=== PATIENT | female | born 1950 | race Caucasian/White ===

== ENCOUNTER 2022-01-23 19:46 | Inpatient (IN) | payer OTHER ==
[~2022-01-23] VITALS: Ht 127 cm; Wt 47.6 kg
[2022-01-23 20:05] VITALS: BP 111/47
[2022-01-23] MEDS ORDERED: PANTOPRAZOLE 40 MG INJ VIAL IVP ONE (20:50)
[2022-01-23 21:08] LABS: BASOPHILS % (AUTO) 0.6 % (0.0-2.0); EOSINOPHILS # (AUTO) 0.1 K/uL (0-0.4); EOSINOPHILS % (AUTO) 4.1 % (0.0-4.0); HEMATOCRIT 24.2 % (36-48); HEMOGLOBIN 7.1 g/dL (12.0-16.0); LYMPHOCYTES # (AUTO) 0.7 K/uL (2.5-16.5); LYMPHOCYTES % (AUTO) 20.8 % (20.5-51.1); MEAN CORPUSCULAR HEMOGLOBIN 29 pg (27-31); MEAN CORPUSCULAR HGB CONC 29 g/dL (33-37); MEAN CORPUSCULAR VOLUME 98.8 fL (80-94); MONOCYTES # (AUTO) 0.5 K/uL (0.8-1.0); MONOCYTES % (AUTO) 14.7 % (1.7-9.3); NEUTROPHILS # (AUTO) 2.1 K/uL (1.8-7.7); NEUTROPHILS % (AUTO) 59.8 % (42.2-75.2); PLATELET COUNT (AUTO) 271 K/uL (140-450); RED BLOOD CELL COUNT(AUTO) 2.45 MIL/uL (4.20-5.40); RED CELL DISTRIBUTION WIDTH 16.6 % (11.6-13.7); WHITE BLOOD COUNT (AUTO) 3.4 K/uL (4.8-10.8)
[2022-01-23 21:31] LABS: PROTHROMBIN TIME 10.6 secs (10.8-13.4)
[2022-01-23 21:39] LABS: ALBUMIN 2.1 g/dL (3.4-5.0); ANION GAP 11.6 (8-16); CARBON DIOXIDE 22.5 mmol/L (21-32); CREATININE 0.6 mg/dL (0.6-1.3); MAGNESIUM 1.9 mg/dL (1.8-2.4); PHOSPHORUS 2.7 mg/dL (2.5-4.9); POTASSIUM 4.1 mmol/L (3.5-5.1); TOTAL BILIRUBIN 0.4 mg/dL (0.0-1.0)
[2022-01-23] MEDS ORDERED: PANTOPRAZOLE 40 MG INJ VIAL ONE (22:09)
[2022-01-24] MEDS ORDERED: ACETAMINOPHEN 325 MG TAB PO PRN ×2 (00:20→13:00)
[2022-01-24] MEDS ORDERED: HYDROcodone/APAP 5/325 MG 1 TAB TAB PO PRN ×2 (00:20→13:00)
[2022-01-24] MEDS ORDERED: PANTOPRAZOLE 40 MG INJ VIAL ONE (01:05)
[2022-01-24] MEDS: MORPHINE SULFATE 2 MG/ML SYR IVP PRN ×2 (01:21→07:40)
[2022-01-24] MEDS: PANTOPRAZOLE 80 MG in NACL 0.9% 100 ML IVP SCH ×3 (01:23→19:30)
[2022-01-24 02:00] VITALS: BP 126/72
[2022-01-24 08:00] VITALS: BP 107/77
[2022-01-24 08:33] LABS: BASOPHILS % (AUTO) 1.1 % (0.0-2.0); EOSINOPHILS # (AUTO) 0.3 K/uL (0-0.4); EOSINOPHILS % (AUTO) 7.2 % (0.0-4.0); HEMATOCRIT 26.3 % (36-48); HEMOGLOBIN 8.2 g/dL (12.0-16.0); LYMPHOCYTES # (AUTO) 0.6 K/uL (2.5-16.5); LYMPHOCYTES % (AUTO) 18.4 % (20.5-51.1); MEAN CORPUSCULAR HEMOGLOBIN 29 pg (27-31); MEAN CORPUSCULAR HGB CONC 31 g/dL (33-37); MEAN CORPUSCULAR VOLUME 93.6 fL (80-94); MONOCYTES # (AUTO) 0.6 K/uL (0.8-1.0); MONOCYTES % (AUTO) 16.9 % (1.7-9.3); NEUTROPHILS % (AUTO) 56.4 % (42.2-75.2); PLATELET COUNT (AUTO) 247 K/uL (140-450); RED BLOOD CELL COUNT(AUTO) 2.81 MIL/uL (4.20-5.40); RED CELL DISTRIBUTION WIDTH 16.3 % (11.6-13.7); WHITE BLOOD COUNT (AUTO) 3.5 K/uL (4.8-10.8)
[2022-01-24 08:41] LABS: ALBUMIN 1.8 g/dL (3.4-5.0); ANION GAP 7.4 (8-16); CARBON DIOXIDE 25.2 mmol/L (21-32); CREATININE 0.6 mg/dL (0.6-1.3); POTASSIUM 4.6 mmol/L (3.5-5.1); TOTAL BILIRUBIN 0.6 mg/dL (0.0-1.0)
[2022-01-24 12:00] VITALS: BP 102/77
[2022-01-24] MEDS ORDERED: ONDANSETRON 4 MG/2 ML VIAL IM/IVP PRN (13:00)
[2022-01-24] MEDS ORDERED: LORazepam 2 MG/ML VIAL IM/IVP PRN (13:00)
[2022-01-24] MEDS ORDERED: ZOLPIDEM 5 MG TAB PO PRN (13:00)
[2022-01-24] MEDS ORDERED: DOCUSATE SODIUM 100 MG GELCAP PO PRN (13:00)
[2022-01-24] MEDS ORDERED: MAG SULF 2000 MG/WATER PREMIX 50 ML IV PRN (13:05)
[2022-01-24] MEDS ORDERED: POTASSIUM CHLORIDE 10 MEQ TABER PO PRN (13:05)
[2022-01-24] MEDS: NACL 0.9% 1,000 ML IV SCH (16:00)
[2022-01-24 16:06] VITALS: BP 105/57
[2022-01-24 17:04] LABS: MAGNESIUM 1.9 mg/dL (1.8-2.4); PHOSPHORUS 3.7 mg/dL (2.5-4.9)
[2022-01-24 20:00] VITALS: BP 110/61
[2022-01-25] VITALS: BP 113/66
[2022-01-25 04:00] VITALS: BP 99/57
[2022-01-25] MEDS: PANTOPRAZOLE 80 MG in NACL 0.9% 100 ML IVP SCH ×2 (05:30→15:30)
[2022-01-25] MEDS: NACL 0.9% 1,000 ML IV SCH (05:40)
[2022-01-25 06:48] LABS: BASOPHILS % (AUTO) 1.3 % (0.0-2.0); EOSINOPHILS # (AUTO) 0.3 K/uL (0-0.4); EOSINOPHILS % (AUTO) 8.2 % (0.0-4.0); HEMATOCRIT 30.4 % (36-48); HEMOGLOBIN 9.2 g/dL (12.0-16.0); LYMPHOCYTES # (AUTO) 0.9 K/uL (2.5-16.5); MEAN CORPUSCULAR HEMOGLOBIN 29 pg (27-31); MEAN CORPUSCULAR HGB CONC 30 g/dL (33-37); MEAN CORPUSCULAR VOLUME 94.8 fL (80-94); MONOCYTES # (AUTO) 0.5 K/uL (0.8-1.0); MONOCYTES % (AUTO) 14.6 % (1.7-9.3); NEUTROPHILS # (AUTO) 1.8 K/uL (1.8-7.7); NEUTROPHILS % (AUTO) 50.9 % (42.2-75.2); PLATELET COUNT (AUTO) 293 K/uL (140-450); RED BLOOD CELL COUNT(AUTO) 3.21 MIL/uL (4.20-5.40); WHITE BLOOD COUNT (AUTO) 3.5 K/uL (4.8-10.8)
[2022-01-25 06:57] LABS: ANION GAP 11.2 (8-16); CARBON DIOXIDE 24.8 mmol/L (21-32); CREATININE 0.5 mg/dL (0.6-1.3)
[2022-01-25 07:53] LABS: MAGNESIUM 1.7 mg/dL (1.8-2.4); PHOSPHORUS 4.2 mg/dL (2.5-4.9)
[2022-01-25 08:00] VITALS: BP 117/66
[2022-01-25 09:20] LABS: CHOL/HDL RATIO 6.4 (1-4.5)
[2022-01-25] MEDS: FUROSEMIDE 40 MG/4 ML VIAL IVP SCH (11:25)
[2022-01-25 12:00] VITALS: BP 105/69
[2022-01-25] MEDS: SUPREP BOWEL PREP KIT 354 ML SOLN.RECON PO SCH ×2 (12:00→18:08)
[2022-01-25] MEDS: bisacodyL 5 MG TABEC PO SCH ×2 (12:51→18:09)
[2022-01-25 16:00] VITALS: BP 127/70
[2022-01-25 20:00] VITALS: BP 113/75
[2022-01-25 22:19] LABS: BILIRUBIN,URINE NEGATIVE (NEGATIVE); BLOOD, URINE NEGATIVE (NEGATIVE); COLOR,URINE YELLOW (YELLOW); LEUKOCYTE ESTERASE ,URINE NEGATIVE (NEGATIVE); NITRITE, URINE POSITIVE (NEGATIVE); UGLUCOSE NEGATIVE (NEGATIVE)
[2022-01-25 22:26] LABS: APPEARANCE,URINE HAZY (CLEAR)
[2022-01-25 22:58] LABS: BARBITURATE, URINE NEGATIVE ng/ml (NEG <=200); BENZODIAZEPINE, URINE NEGATIVE ng/mL (NEG <=200); CANNABINOID, URINE NEGATIVE ng/mL (NEG <=50); COCAINE, URINE NEGATIVE ng/mL (NEG <=300); OPIATE, URINE POSITIVE ng/mL (NEG <=2000); PHENCYCLIDINE SCREEN,URINE NEGATIVE ng/mL (NEG <=25)
[2022-01-26] VITALS: BP 110/67
[2022-01-26] MEDS: PANTOPRAZOLE 80 MG in NACL 0.9% 100 ML IVP SCH ×2 (01:30→11:30)
[2022-01-26 04:00] VITALS: BP 105/57
[2022-01-26] MEDS ORDERED: MAGNESIUM CITRATE 300 ML BTL PO SCH (05:55)
[2022-01-26] MEDS ORDERED: SODIUM PHOSPHATE 118 ML ENEM RC SCH (05:55)
[2022-01-26 07:26] LABS: BASOPHILS % (AUTO) 0.8 % (0.0-2.0); EOSINOPHILS # (AUTO) 0.2 K/uL (0-0.4); EOSINOPHILS % (AUTO) 4.3 % (0.0-4.0); HEMATOCRIT 28.1 % (36-48); HEMOGLOBIN 8.9 g/dL (12.0-16.0); LYMPHOCYTES # (AUTO) 0.7 K/uL (2.5-16.5); MEAN CORPUSCULAR HEMOGLOBIN 29 pg (27-31); MEAN CORPUSCULAR HGB CONC 32 g/dL (33-37); MEAN CORPUSCULAR VOLUME 91.8 fL (80-94); MONOCYTES # (AUTO) 0.6 K/uL (0.8-1.0); NEUTROPHILS # (AUTO) 2.5 K/uL (1.8-7.7); NEUTROPHILS % (AUTO) 62.9 % (42.2-75.2); PLATELET COUNT (AUTO) 271 K/uL (140-450); RED BLOOD CELL COUNT(AUTO) 3.06 MIL/uL (4.20-5.40)
[2022-01-26 07:33] LABS: ANION GAP 11.4 (8-16); CARBON DIOXIDE 25.9 mmol/L (21-32); CREATININE 0.6 mg/dL (0.6-1.3); POTASSIUM 3.3 mmol/L (3.5-5.1)
[2022-01-26 07:40] LABS: MAGNESIUM 1.7 mg/dL (1.8-2.4); PHOSPHORUS 4.2 mg/dL (2.5-4.9)
[2022-01-26 08:00] VITALS: BP 98/55
[2022-01-26] MEDS ORDERED: bisacodyL 5 MG TABEC PO SCH (08:00)
[2022-01-26] MEDS: FUROSEMIDE 40 MG/4 ML VIAL IVP SCH (09:00)
[2022-01-26 09:06] LABS: T4 (THYROXINE) 6.2 ug/dL (4.5-12.0)
[2022-01-26] MEDS ORDERED: fentaNYL citrate 0.05 MG/ML VIAL ONE ×2 (10:53)
[2022-01-26] MEDS ORDERED: MIDAZOLAM 5 MG/5 ML VIAL ONE (10:54)
[2022-01-26 12:00] VITALS: BP 91/42
[2022-01-26] MEDS ORDERED: MIDAZOLAM 2 MG/2 ML VIAL IVP ONE (12:25)
[2022-01-26] MEDS ORDERED: fentaNYL citrate 0.05 MG/ML VIAL IVP ONE (12:25)
[2022-01-26 16:00] VITALS: BP 101/55
[2022-01-26] MEDS ORDERED: MAGNESIUM OXIDE 400 MG TAB PO SCH (16:00)
[2022-01-26 20:00] VITALS: BP 98/49
[2022-01-26] MEDS: SUCRALFATE 1 GM TAB PO SCH (21:05)
[2022-01-27] VITALS: BP 96/51
[2022-01-27 04:00] VITALS: BP 100/42
[2022-01-27 07:03] LABS: BASOPHILS # (AUTO) 0.1 K/uL (0.00-0.22); EOSINOPHILS # (AUTO) 0.2 K/uL (0-0.4); EOSINOPHILS % (AUTO) 2.9 % (0.0-4.0); HEMATOCRIT 28.5 % (36-48); HEMOGLOBIN 8.9 g/dL (12.0-16.0); LYMPHOCYTES # (AUTO) 0.8 K/uL (2.5-16.5); LYMPHOCYTES % (AUTO) 12.9 % (20.5-51.1); MEAN CORPUSCULAR HEMOGLOBIN 29 pg (27-31); MEAN CORPUSCULAR HGB CONC 31 g/dL (33-37); MEAN CORPUSCULAR VOLUME 91.1 fL (80-94); MONOCYTES # (AUTO) 0.6 K/uL (0.8-1.0); MONOCYTES % (AUTO) 8.8 % (1.7-9.3); NEUTROPHILS # (AUTO) 4.8 K/uL (1.8-7.7); NEUTROPHILS % (AUTO) 74.4 % (42.2-75.2); PLATELET COUNT (AUTO) 270 K/uL (140-450); RED BLOOD CELL COUNT(AUTO) 3.13 MIL/uL (4.20-5.40); WHITE BLOOD COUNT (AUTO) 6.5 K/uL (4.8-10.8)
[2022-01-27 07:06] LABS: ANION GAP 8.1 (8-16); CARBON DIOXIDE 27.2 mmol/L (21-32); CREATININE 0.6 mg/dL (0.6-1.3); POTASSIUM 4.3 mmol/L (3.5-5.1)
[2022-01-27 07:11] LABS: PHOSPHORUS 2.9 mg/dL (2.5-4.9)
[2022-01-27 08:00] VITALS: BP 107/59
[2022-01-27] MEDS: SUCRALFATE 1 GM TAB PO SCH (08:55)
[2022-01-27] MEDS ORDERED: PANTOPRAZOLE 40 MG TABEC PO SCH (09:00)
[2022-01-27] MEDS: FUROSEMIDE 40 MG/4 ML VIAL IVP SCH (09:00)
[2022-01-27] MEDS ORDERED: DOCU-299 PO (10:10)
[2022-01-27] MEDS ORDERED: PANT40EC56 PO (10:10)
[2022-01-27] MEDS ORDERED: SUCR1TAB56 PO (10:10)
[2022-01-27] MEDS ORDERED: FURO40TA9 PO (10:10)
[2022-01-27] MEDS ORDERED: CEPH-588 PO (10:10)
[2022-01-27 12:00] VITALS: BP 94/54
[2022-01-27 16:00] VITALS: BP 100/52
== END 2022-01-27 19:45 | disposition home health service (06) | DRG 377 ==
LOC: MED 19:46 → MTU 23:33
PROC: 30233N1 Transfusion of Nonautologous Red Blood Cells into Peripheral Vein, Percutaneous Approach (ICD-10-PCS; principal; 2022-01-23)
PROC: 0W3P8ZZ Control Bleeding in Gastrointestinal Tract, Via Natural or Artificial Opening Endoscopic (ICD-10-PCS; 2022-01-27)
PROC: 0DBG8ZZ Excision of Left Large Intestine, Via Natural or Artificial Opening Endoscopic (ICD-10-PCS; 2022-01-27)
DX: K31.811 Angiodysplasia of stomach and duodenum with bleeding (principal); I50.43 Acute on chronic combined systolic (congestive) and diastolic (congestive) heart failure; E44.0 Moderate protein-calorie malnutrition; N39.0 Urinary tract infection, site not specified; D50.0 Iron deficiency anemia secondary to blood loss (chronic); E78.5 Hyperlipidemia, unspecified; E83.42 Hypomagnesemia; K57.30 Diverticulosis of large intestine without perforation or abscess without bleeding; E87.6 Hypokalemia; Z20.822 Contact with and (suspected) exposure to COVID-19; E86.0 Dehydration; I25.10 Atherosclerotic heart disease of native coronary artery without angina pectoris; I25.5 Ischemic cardiomyopathy; K63.5 Polyp of colon; Z86.16 Personal history of COVID-19; Z98.61 Coronary angioplasty status; Z90.49 Acquired absence of other specified parts of digestive tract; Z68.29 Body mass index [BMI] 29.0-29.9, adult
CPT/HCPCS: 36415; 36430; 36556; 71045; 76705; 80048; 80053; 80305; 81003; 82150; 83036; 83690; 83735; 83880; 84100; 84134; 84436; 84443; 84484; 85025; 85610; 85730; 86886; 86900; 86901; 86920; 87081; 87086; 87635-QW; 93005; 96374; 97112; 97116; 97530; 99285; C9113; J0696; J1940; J2250; J2270; J3010; J7030; J7060; P9016; Q0092

== ENCOUNTER 2022-04-09 16:54 | Inpatient (IN) | payer OTHER ==
[~2022-04-09] VITALS: Ht 139.7 cm; Wt 52.2 kg
[~2022-04-09 16:54] MED LIST: CEPH-588 PO; DOCU-299 PO; FURO40TA9 PO; PANT40EC56 PO; SUCR1TAB56 PO
--- NOTE | 2022-04-09 17:05 | NUR ---
PT TAKEN TO XRAY VIA W/C
[2022-04-09 17:29] VITALS: BP 127/56
[2022-04-09 17:41] LABS: BASOPHILS % (AUTO) 0.8 % (0.0-2.0); EOSINOPHILS % (AUTO) 0.4 % (0.0-4.0); HEMATOCRIT 25.7 % (36-48); HEMOGLOBIN 7.1 g/dL (12.0-16.0); LYMPHOCYTES # (AUTO) 1.1 K/uL (2.5-16.5); LYMPHOCYTES % (AUTO) 19.1 % (20.5-51.1); MEAN CORPUSCULAR HEMOGLOBIN 24 pg (27-31); MEAN CORPUSCULAR HGB CONC 28 g/dL (33-37); MEAN CORPUSCULAR VOLUME 86.1 fL (80-94); MONOCYTES # (AUTO) 0.5 K/uL (0.8-1.0); MONOCYTES % (AUTO) 8.7 % (1.7-9.3); NEUTROPHILS # (AUTO) 3.9 K/uL (1.8-7.7); PLATELET COUNT (AUTO) 345 K/uL (140-450); RED BLOOD CELL COUNT(AUTO) 2.98 MIL/uL (4.20-5.40); RED CELL DISTRIBUTION WIDTH 20.5 % (11.6-13.7); WHITE BLOOD COUNT (AUTO) 5.6 K/uL (4.8-10.8)
--- NOTE | 2022-04-09 17:51 | NUR ---
ACCOMPANIED BY CAREGIVER FOR REFERRAL BY PCP FOR LOW H&H. DENIES ANY COMPLAINTS AT THIS TIME. AAOX4, AMBULATORY WITH ASSISTANCE. CAREGIVER AT BEDSIDE. BLOOD DRAWN.
[2022-04-09 18:24] LABS: ALBUMIN 2.3 g/dL (3.4-5.0); ANION GAP 12.6 (8-16); CARBON DIOXIDE 25.5 mmol/L (21-32); CREATININE 0.9 mg/dL (0.6-1.3); POTASSIUM 4.1 mmol/L (3.5-5.1); TOTAL BILIRUBIN 0.4 mg/dL (0.0-1.0)
--- NOTE | 2022-04-09 19:45 | NUR ---
PT WITH VERY POOR VENOUS ACCESS.. 22G SL ESTABLISHED RT NEJ.
[2022-04-09] MEDS ORDERED: ACETAMINOPHEN 325 MG TAB PO PRN (23:00)
[2022-04-09] MEDS ORDERED: DOCUSATE SODIUM 100 MG GELCAP PO PRN (23:00)
[2022-04-09] MEDS ORDERED: guaiFENesin DM 200/20 MG-10 ML 10 ML UDC PO PRN (23:00)
[2022-04-09] MEDS ORDERED: ONDANSETRON 4 MG/2 ML VIAL IM/IVP PRN (23:00)
[2022-04-09] MEDS ORDERED: POTASSIUM CHLORIDE 10 MEQ TABER PO PRN (23:00)
[2022-04-09] MEDS ORDERED: ZOLPIDEM 5 MG TAB PO PRN (23:00)
[2022-04-09 23:28] LABS: PROTHROMBIN TIME 10.4 secs (10.8-13.4)
[2022-04-09 23:37] LABS: CHOL/HDL RATIO 2.8 (1-4.5); FREE T4 (FREE THYROXINE) 1.16 ng/dL (0.76-1.46); MAGNESIUM 2.2 mg/dL (1.8-2.4); PHOSPHORUS 4.1 mg/dL (2.5-4.9); THYROID STIMULATING HORMONE 1.6 uIU/mL (0.34-3.74)
--- NOTE | 2022-04-10 | NUR ---
HAS BEEN RESTING COMFORTABLY WITH EYES CLOSED. RESOIRATIONS REGULAR AND UNLABORED. AWAKENS EASILY AND DENIES PAIN OR DISCOMFORT.
[2022-04-10] MEDS: NACL 0.9% 1,000 ML IV SCH ×3 (01:40→22:00)
--- NOTE | 2022-04-10 04:00 | NUR ---
Patient appears to be resting comfortably in bed. Vital Signs within normal limits. Respirations even and unlabored.
--- NOTE | 2022-04-10 06:15 | NUR ---
PRBC'S BEGUN AT THIS TIME
--- NOTE | 2022-04-10 07:20 | NUR ---
RECEIVED REPORT FROM DELBERT DIALLO, TRANSFER OF CARE AT THIS TIME. RECEIVED PT ASLEEP IN BED, BLOOD TRANSFUSION ONGOING, TRANSFUSING WELL IN THE RIGHT JUGULAR. BED LOCKED, RESPIRATIONS EVEN AND UNLABORED.
--- NOTE | 2022-04-10 09:15 | NUR ---
DR ARMANDO CA AT BEDSIDE FOR PT EVAL
[2022-04-10] MEDS: PANTOPRAZOLE 40 MG TABEC PO SCH (09:16)
[2022-04-10] MEDS: FUROSEMIDE 40 MG TAB PO SCH (09:16)
--- NOTE | 2022-04-10 09:36 | NUR ---
CALLED LAB FOR REDRAW OF CBC AND TROPONIN, VERBAL ORDER BY DR CA RECEIVED
[2022-04-10 09:53] LABS: NEUTROPHILS # (AUTO) 4.5 K/uL (1.8-7.7)
[2022-04-10 10:05] LABS: ANION GAP 8.1 (8-16); CARBON DIOXIDE 26.9 mmol/L (21-32); CREATININE 0.7 mg/dL (0.6-1.3)
[2022-04-10 10:13] LABS: BASOPHILS % (AUTO) 0.6 % (0.0-2.0); EOSINOPHILS % (AUTO) 0.3 % (0.0-4.0); HEMATOCRIT 30.8 % (36-48); LYMPHOCYTES # (AUTO) 0.7 K/uL (2.5-16.5); MEAN CORPUSCULAR HEMOGLOBIN 25 pg (27-31); MEAN CORPUSCULAR HGB CONC 29 g/dL (33-37); MEAN CORPUSCULAR VOLUME 84.5 fL (80-94); MONOCYTES # (AUTO) 0.6 K/uL (0.8-1.0); MONOCYTES % (AUTO) 10.2 % (1.7-9.3); NEUTROPHILS % (AUTO) 76.9 % (42.2-75.2); PLATELET COUNT (AUTO) 301 K/uL (140-450); RED BLOOD CELL COUNT(AUTO) 3.65 MIL/uL (4.20-5.40); RED CELL DISTRIBUTION WIDTH 18.4 % (11.6-13.7); WHITE BLOOD COUNT (AUTO) 5.9 K/uL (4.8-10.8)
--- NOTE | 2022-04-10 10:44 | NUR ---
PT UP IN BED EATING BREAKFAST
--- NOTE | 2022-04-10 13:00 | NUR ---
JOLENE AT BEDSIDE FOR ECHO
--- NOTE | 2022-04-10 13:30 | NUR ---
PATIENT HAS BEEN SCREENED AND CATEGORIZED MODERATE NUTRITION RISK. PATIENT WILL BE SEEN WITHIN 3-5 DAYS OF ADMISSION. SILVIA [address]
--- NOTE | 2022-04-10 15:24 | NUR ---
PT NOTED WITH WET DIAPER, DIAPER CHANGED, SHEETS CHANGED, KEPT CLEAN AND DRY
--- NOTE | 2022-04-10 19:26 | NUR ---
Pt report given to ALPHONSO DIALLO. Transfer of care at this time.
[2022-04-10 21:20] LABS: BILIRUBIN,URINE NEGATIVE (NEGATIVE); BLOOD, URINE NEGATIVE (NEGATIVE); COLOR,URINE YELLOW (YELLOW); LEUKOCYTE ESTERASE ,URINE NEGATIVE (NEGATIVE); NITRITE, URINE POSITIVE (NEGATIVE); UGLUCOSE NEGATIVE (NEGATIVE)
[2022-04-10 21:23] LABS: APPEARANCE,URINE CLOUDY (CLEAR)
--- NOTE | 2022-04-10 21:40 | NUR ---
Patient will be admitted to care of DR CA. Admited to TELE. Will go to room 110A. Belongings list completed. Report to IMANI GUTIERREZ.
--- NOTE | 2022-04-10 21:40 | NUR ---
PT ADMITTED TO [facility] DEPARTMENT FROM ER THRU [facility]. PT IS AOX4 WITH DIAGNOSIS OF ANEMIA, CHEST PAIN AND ELEVATED TROPONIN. PT IS AMBULATORY BUT NEEDS ASSISTANCE. RESPIRATION ARE EVEN AND UNLABORED WITH 2L NC. NO S/S OF DISTRESS NOTED WITH NORMAL SINUS RHYTHM. PATIENT HAS IV ON RIGHT EXTERNAL JUGULAR GAUGE 20 WITH NS RUNNING AT 60ML/HR. SKIN IS INTACT. PT IS ORIENTED TO HOSPITAL/ROOM, BED BUTTONS AND CALL LIGHT. ALL SAFETY MEASURES IMPLEMENTED. CALL LIGHT WITHIN REACH, BED WHEEL LOCK AND BED IN LOW POSITION. WILL CONTINUE TO MONITOR THE PT.
[2022-04-10 21:53] LABS: BARBITURATE, URINE NEGATIVE ng/ml (NEG <=200); BENZODIAZEPINE, URINE NEGATIVE ng/mL (NEG <=200); CANNABINOID, URINE NEGATIVE ng/mL (NEG <=50); COCAINE, URINE NEGATIVE ng/mL (NEG <=300); OPIATE, URINE NEGATIVE ng/mL (NEG <=2000); PHENCYCLIDINE SCREEN,URINE NEGATIVE ng/mL (NEG <=25)
[2022-04-10] MEDS: HYDROcodone/APAP 7.5/325 MG 1 TAB PO PRN (22:30)
--- NOTE | 2022-04-10 22:30 | NUR ---
PT COMPLAIN OF CHEST PAIN. 6/10 IS THE PAIN SCALE ACCORDING TO PT. PRN PAIN MEDICATION WAS GIVEN PER MD ORDER. PT WELL TOLERATE IT. ALL SAFETY MEASURES IMPLEMENTED. CALL LIGHT WITHIN REACH. WILL CONTINUE TO MONITOR THE PT.
--- NOTE | 2022-04-10 23:20 | NUR ---
NOTIFIED DR. LAMBERT REGARDING PT TROPONIN LEVEL OF 2329. NEW ORDER MADE AND CARRIED OUT.
[2022-04-10] MEDS ORDERED: LOVENOX 1MG/KG Q12H SUBQ SCH (23:25)
--- NOTE | 2022-04-10 23:59 | NUR ---
EKG PERFORMED ORDERED ABNORM RESULTS REPORTED TO RN A COPY WAS PROVIDED TO RN AND A COPY WAS ALSO PLACED IN PT CHART
[2022-04-11] VITALS: BP 99/60
--- NOTE | 2022-04-11 01:30 | NUR ---
PT IV PULLED OUT. NEW IV INSERTED ON RIGHT FOREARM GAUGE 24. IV IS PATENT AND INTACT. ALL SAFETY MEASURES IMPLEMENTED. WILL CONTINUE TO MONITOR.
[2022-04-11] MEDS: ENOXAPARIN 60 MG/0.6 ML SYR SUBQ SCH ×2 (02:12→08:24)
[2022-04-11 04:00] VITALS: BP 94/53
--- NOTE | 2022-04-11 04:18 | NUR ---
NOTIFIED DR. LAMBERT, REGARDING PT BP 94/53 P OF 92. WILL WAIT FOR THE MD REPLY AND CONTINUE TO MONITOR THE PT.
--- NOTE | 2022-04-11 05:04 | NUR ---
DR. LAMBERT ORDER TO INCREASE FLUID TO 100ML/HR. NEW ORDER MADE AND CARRIED OUT.
[2022-04-11] MEDS: NACL 0.9% 1,000 ML IV SCH ×2 (05:15→15:09)
--- NOTE | 2022-04-11 05:45 | NUR ---
MORNING CARE WAS DONE TO PT. CHANGE DIAPER, IV LINE CARE WAS ALSO DONE. NASAL CANNULA WAS PROPERLY CLEAN AND ATTACHED TO PT. EXTRA BLANKET WAS ALSO GIVEN. ALL SAFETY MEASURES WAS IMPLEMENTED. CALL LIGHT WITHIN REACH. WILL CONTINUE TO MONITOR.
[2022-04-11 07:06] LABS: BASOPHILS % (AUTO) 0.2 % (0.0-2.0); EOSINOPHILS # (AUTO) 0.1 K/uL (0-0.4); EOSINOPHILS % (AUTO) 1.3 % (0.0-4.0); HEMATOCRIT 28.5 % (36-48); HEMOGLOBIN 8.5 g/dL (12.0-16.0); LYMPHOCYTES # (AUTO) 0.7 K/uL (2.5-16.5); LYMPHOCYTES % (AUTO) 11.6 % (20.5-51.1); MEAN CORPUSCULAR HEMOGLOBIN 25 pg (27-31); MEAN CORPUSCULAR HGB CONC 30 g/dL (33-37); MEAN CORPUSCULAR VOLUME 83.3 fL (80-94); MONOCYTES # (AUTO) 0.6 K/uL (0.8-1.0); MONOCYTES % (AUTO) 8.7 % (1.7-9.3); NEUTROPHILS % (AUTO) 78.2 % (42.2-75.2); PLATELET COUNT (AUTO) 256 K/uL (140-450); RED BLOOD CELL COUNT(AUTO) 3.42 MIL/uL (4.20-5.40); RED CELL DISTRIBUTION WIDTH 18.9 % (11.6-13.7); WHITE BLOOD COUNT (AUTO) 6.4 K/uL (4.8-10.8)
[2022-04-11 07:28] LABS: ANION GAP 10.6 (8-16); CARBON DIOXIDE 25.2 mmol/L (21-32); CREATININE 0.7 mg/dL (0.6-1.3)
--- NOTE | 2022-04-11 07:41 | NUR ---
PT IS STABLE. ENDORSED PT TO MORNING SHIFT NURSE FOR CONTINUITY OF CARE.
--- NOTE | 2022-04-11 07:42 | NUR ---
RECEIVED PATIENT FROM NETWORK SPECIALIST NURSE FOR CONTINUITY OF CARE. PT IS AOX4,ABLE TO MAKE NEEDS KNOWN. RESPIRATIONS EVEN AND UNLABORED ON ROOM AIR NO DISTRESS NOTED. SKIN IS WARM, DRY, AND INTACT. IV SITE ON ON RFA 24 G INFUSING FLUIDS ORDERED. INTACT AND PATENT. DENIES PAIN AT THE MOMENT. PLAN OF CARE DISCUSSED. SAFETY PRECAUTIONS IN PLACE. CALL LIGHT WITHIN REACH. WILL CONTINUE TO MONITOR.
[2022-04-11 07:46] LABS: POTASSIUM 2.8 mmol/L (3.5-5.1)
[2022-04-11 08:00] VITALS: BP 108/62
[2022-04-11 08:07] LABS: T4 (THYROXINE) 5.7 ug/dL (4.5-12.0)
[2022-04-11] MEDS ORDERED: POTASSIUM CHLORIDE 40 MEQ, LIDOCAINE MPF 1% 25 MG in NACL 0.9% 250 ML IV ONE (08:10)
[2022-04-11] MEDS: FUROSEMIDE 40 MG TAB PO SCH (08:22)
[2022-04-11] MEDS: PANTOPRAZOLE 40 MG TABEC PO SCH (08:22)
[2022-04-11] MEDS: METOPROLOL 25 MG TAB PO SCH ×2 (08:22→20:48)
[2022-04-11] MEDS: HYDROcodone/APAP 7.5/325 MG 1 TAB PO PRN ×2 (08:22→16:18)
--- NOTE | 2022-04-11 08:30 | NUR ---
ALL SCHEDULED MEDS GIVEN. PT IS STABLE. NO DISTRESS NOTED. WILL CONTINUE TO MONITOR.
[2022-04-11 09:06] LABS: FOLIC ACID 5.8 ng/mL (>3.0)
--- NOTE | 2022-04-11 11:20 | NUR ---
CHECKED ON PATIENT. PT IS STABLE. NO DISTRESS NOTED. WILL CONTINUE TO MONITOR.
[2022-04-11 12:00] VITALS: BP 93/57
--- NOTE | 2022-04-11 13:15 | NUR ---
CHECKED ON PATIENT. PT IS STABLE. NO DISTRESS NOTED. WILL CONTINUE TO MONITOR
[2022-04-11 16:00] VITALS: BP 97/63
[2022-04-11] MEDS: FERROUS SULFATE 325 MG TABEC PO SCH (16:18)
[2022-04-11 16:24] LABS: HEMATOCRIT 30.9 % (36-48)
[2022-04-11] MEDS ORDERED: ATORVASTATIN 20 MG TAB PO SCH (17:00)
--- NOTE | 2022-04-11 18:38 | NUR ---
PATIENT COMPLAINED OF N/V. ADMINISTERED ZOFRAN IVP PRN PER MD ORDERED.
--- NOTE | 2022-04-11 19:09 | NUR ---
ENDORSED TO EMBALMER ASSISTANT NURSE FOR CONTINUITY OF CARE. PT IS STABLE.
--- NOTE | 2022-04-11 19:10 | NUR ---
ENDORSEMENT GIVEN BY IMANI HOOVER FOR CONTINUITY OF CARE. PATIENT IS SITTING ON BED EATING DINNER. O2 AT 2L NC TOLERATING WELL. NO SOB NOTED. BREATHING NORMAL. SYMMETRICAL RISE AND FALL OF CHEST. IVF NS INFUSING WELL ON THE RIGHT FOREARM. ALL SAFETY PRECAUTIONS ARE IN PLACE. CALL LIGHT WITHIN REACH. NO COMPLAINTS OF PAIN AT THIS TIME. WILL CONTINUE TO MONITOR.
[2022-04-11 20:00] VITALS: BP 140/74
--- NOTE | 2022-04-11 20:48 | NUR ---
SCHEDULED MEDICATION GIVEN PER MD ORDER. V/S : 140/74, 19, 76, 97.5, 97%.
[2022-04-12] VITALS: BP 92/55
[2022-04-12] MEDS: NACL 0.9% 1,000 ML IV SCH ×2 (02:10→10:56)
--- NOTE | 2022-04-12 02:15 | NUR ---
PATIENT IS SLEEPING. BREATHING NORMAL. SYMMETRICAL RISE AND FALL OF CHEST. CALL LIGHT IN REACH.
[2022-04-12 04:00] VITALS: BP 98/59
--- NOTE | 2022-04-12 07:10 | NUR ---
SBAR report received from Briana DIALLO, all cares assumed. Pt resting in bed, awake and alert. Bed in low and locked position, call light within reach. Pt denies needs at this time.
--- NOTE | 2022-04-12 07:15 | NUR ---
PATIENT IS STABLE. REPORT GIVEN TO DAY SHIFT NURSE FOR CONTINUITY OF CARE.
[2022-04-12 07:42] LABS: ANION GAP 9.7 (8-16); CARBON DIOXIDE 23.9 mmol/L (21-32); CREATININE 0.9 mg/dL (0.6-1.3); POTASSIUM 3.6 mmol/L (3.5-5.1)
[2022-04-12 07:43] LABS: BASOPHILS % (AUTO) 0.3 % (0.0-2.0); EOSINOPHILS % (AUTO) 0.5 % (0.0-4.0); HEMATOCRIT 27.5 % (36-48); LYMPHOCYTES # (AUTO) 0.6 K/uL (2.5-16.5); LYMPHOCYTES % (AUTO) 8.3 % (20.5-51.1); MEAN CORPUSCULAR HEMOGLOBIN 25 pg (27-31); MEAN CORPUSCULAR HGB CONC 29 g/dL (33-37); MEAN CORPUSCULAR VOLUME 85.7 fL (80-94); MONOCYTES # (AUTO) 0.7 K/uL (0.8-1.0); MONOCYTES % (AUTO) 9.6 % (1.7-9.3); NEUTROPHILS % (AUTO) 81.3 % (42.2-75.2); PLATELET COUNT (AUTO) 249 K/uL (140-450); RED BLOOD CELL COUNT(AUTO) 3.21 MIL/uL (4.20-5.40); RED CELL DISTRIBUTION WIDTH 19.2 % (11.6-13.7); WHITE BLOOD COUNT (AUTO) 7.4 K/uL (4.8-10.8)
[2022-04-12 08:00] VITALS: BP 96/58
[2022-04-12] MEDS: FERROUS SULFATE 325 MG TABEC PO SCH ×2 (08:34→17:06)
[2022-04-12] MEDS: FUROSEMIDE 40 MG TAB PO SCH (08:46)
[2022-04-12] MEDS: ATORVASTATIN 20 MG TAB PO SCH (08:46)
[2022-04-12] MEDS: PANTOPRAZOLE 40 MG TABEC PO SCH (08:47)
[2022-04-12] MEDS: METOPROLOL 25 MG TAB PO SCH (08:47)
[2022-04-12] MEDS ORDERED: ACETAMINOPHEN EXTRA STRENGTH 500 MG TAB PO PRN (09:15)
[2022-04-12] MEDS: SUCRALFATE 1 GM TAB PO SCH ×2 (10:28→21:00)
[2022-04-12 12:00] VITALS: BP 98/43
--- NOTE | 2022-04-12 13:05 | NUR ---
BLOOD TRANSFUSION STARTED AT 1245, PT TOLERATING BLOOD PRODUCT, NO SIGNS OF DISTRESS, VITAL SIGNS STABLE.
--- NOTE | 2022-04-12 15:08 | NUR ---
BLOOD TRANSFUSION ENDED. PT SHOWS NO SIGNS OF DISTRESS, VSS.
[2022-04-12 16:00] VITALS: BP_SYST 98; BP_SYST 99; BP_DIAS 59; BP_DIAS 68
[2022-04-12 16:39] LABS: HEMATOCRIT 33.1 % (36-48); HEMOGLOBIN 9.7 g/dL (12.0-16.0)
[2022-04-12] MEDS: HYDROcodone/APAP 7.5/325 MG 1 TAB PO PRN (17:25)
--- NOTE | 2022-04-12 19:30 | NUR ---
SBAR REPORT GIVEN TO YUE RN, ALL CARES ENDORSED.
[2022-04-12 20:00] VITALS: BP 98/39
--- NOTE | 2022-04-12 20:23 | NUR ---
1930 PATIENTS O2 SATURATION ON 2LNC IS 85%. INCREASED FIO2 TO 4LNC WITH HUMIDIFICATION. PATIENTS O2 SAT IMPROVED TO 94TO 95%
--- NOTE | 2022-04-12 23:32 | NUR ---
PATIENT AWAKE ALERT HAS 02 2 LITERS N/C SAT98%. NO C/O OF SOB, OR CHEST PAIN . PATIENT SINUS ON MONITOR HAS 24 GA IN RIGHT WRIST NS INFUSING 100 HOUR. NO SIGNS OF ACUTE DISTRESS. LUNG DIMINISH .
[2022-04-13] VITALS (7 sets, daily range): BP systolic 100–127; BP diastolic 45–69
[2022-04-13] MEDS: NACL 0.9% 1,000 ML IV SCH ×2 (00:49→08:21)
[2022-04-13 07:12] LABS: CARBON DIOXIDE 22.6 mmol/L (21-32); POTASSIUM 4.6 mmol/L (3.5-5.1)
--- NOTE | 2022-04-13 07:20 | NUR ---
RECEIVED REPORT FROM MARKETING REP NURSE FOR CONTINUITY OF CARE. PT ASLEEP IN BED. ON O2 4L VIA NC, BREATHING SYMMETRICAL. FLACC O. WITH LFA 24G WITH NS AT 100CC/HR. CALL LIGHT WITHIN REACH. ALL SAFETY MEASURES IN PLACE.
[2022-04-13 07:26] LABS: BASOPHILS % (AUTO) 0.2 % (0.0-2.0); EOSINOPHILS % (AUTO) 0.5 % (0.0-4.0); HEMATOCRIT 32.9 % (36-48); HEMOGLOBIN 9.9 g/dL (12.0-16.0); LYMPHOCYTES # (AUTO) 0.7 K/uL (2.5-16.5); LYMPHOCYTES % (AUTO) 8.9 % (20.5-51.1); MEAN CORPUSCULAR HEMOGLOBIN 26 pg (27-31); MEAN CORPUSCULAR HGB CONC 30 g/dL (33-37); MEAN CORPUSCULAR VOLUME 85.6 fL (80-94); MONOCYTES # (AUTO) 0.8 K/uL (0.8-1.0); MONOCYTES % (AUTO) 10.5 % (1.7-9.3); NEUTROPHILS # (AUTO) 5.9 K/uL (1.8-7.7); NEUTROPHILS % (AUTO) 79.9 % (42.2-75.2); PLATELET COUNT (AUTO) 258 K/uL (140-450); RED BLOOD CELL COUNT(AUTO) 3.84 MIL/uL (4.20-5.40); WHITE BLOOD COUNT (AUTO) 7.4 K/uL (4.8-10.8)
[2022-04-13] MEDS ORDERED: FURO40TA9 PO (09:00)
[2022-04-13] MEDS ORDERED: SUCR1TAB56 PO (09:00)
[2022-04-13] MEDS ORDERED: ATOR20TA40 PO (09:00)
[2022-04-13] MEDS ORDERED: PANT40EC56 PO (09:00)
[2022-04-13] MEDS ORDERED: FER325 PO (09:00)
[2022-04-13] MEDS: FUROSEMIDE 40 MG TAB PO SCH (09:12)
[2022-04-13] MEDS: PANTOPRAZOLE 40 MG TABEC PO SCH (09:13)
[2022-04-13] MEDS: FERROUS SULFATE 325 MG TABEC PO SCH ×2 (09:13→17:30)
[2022-04-13] MEDS: ATORVASTATIN 20 MG TAB PO SCH (09:13)
[2022-04-13] MEDS: SUCRALFATE 1 GM TAB PO SCH ×2 (09:13→21:12)
--- NOTE | 2022-04-13 09:16 | NUR ---
DC PLANNING: THE PATIENT PRESENTED WITH C/O WEAKNESS X 1 MONTH, CHEST PAIN. H/O HTN AND DEMENTIA. HGB 7.1, ORDERS FOR ONE UNIT PRBC'S. CM SPOKE WITH THE PATIENTS SISTER GABRIEL BY PHONE, CORRECTED ADDRESS IDENTIFIED. THE PATIENT HAS PERIODS OF CONFUSION AND LIVES IN A SINGLE STORY HOUSE WITH HER SISTER AND SON. HER SISTER IS HER PRIMARY CAREGIVER AND WILL BE CALLING [facility] TO START THE PROCESS. THE PATIENT IS ABLE TO AMBULATE SLOWLY WITH A FWW AND IS ON SERVICE WITH [employer] [facility]. SHE REQUIRES ASSISTANCE WITH ADL'S AND HAS A NEW PMD WHO REFERRED HER TO THE ED BUT GABRIEL CAN'T REMEMBER THE PMD'S NAME. FAMILY WILL PROVIDE TRANSPORT WHEN THE PATIENT IS STABLE AND [facility] WILL BE RESUMED. CM WILL FOLLOW. Addendum: 04/13/22 at 1131 by Gloria Garrido CM DC PLANNING: ORDERS AND CLINICAL PACKET FAXED TO THE PATIENTS ESTABLISHED [facility], [employer] ([phone]), CM ALSO SPOKE WITH THEM, THEY WILL RESUME SERVICE AFTER THE PATIENT IS DC'D. CM WILL FOLLOW.
--- NOTE | 2022-04-13 09:22 | NUR ---
SCHEDULED AM MEDICATIONS GIVEN ORDERED. PT C/O CHEST PAIN 07/13 WILL MEDICATE
[2022-04-13] MEDS: NITROGLYCERIN 0.4 MG TAB SL PRN ×3 (09:25→20:03)
--- NOTE | 2022-04-13 09:30 | NUR ---
TITRATED PT'S O2 TO 3L VIA NC, SATING AT 92% WILL CONTINUE TO MONITOR.
--- NOTE | 2022-04-13 10:26 | NUR ---
PT FOR DISCHARGE. MADE AWARE THAT PT'S ON O2 AT THIS TIME.
--- NOTE | 2022-04-13 12:33 | NUR ---
RECEIVED ON SUPPLEMENTAL OXYGEN AT 2 LPM VIA NC PLACED ON ROOM AIR AUDIO OPERATOR TO MONITOR
--- NOTE | 2022-04-13 12:36 | NUR ---
ROOM SATURATION 95%-96% DOROTEO/LIFE TESTER OUTBOARD MOTORS AWARE
--- NOTE | 2022-04-13 12:50 | NUR ---
PT SEEN BY RT FOR O2 EVAL. PT CURRENTLY ON ROOM AIR AT THIS TIME, NO SOB NOTED. WILL MONITOR.
--- NOTE | 2022-04-13 14:00 | NUR ---
PT FOR CXR.
--- NOTE | 2022-04-13 15:51 | NUR ---
CALLED SISTER GABRIEL AND MADE AWARE OF DISCHARGE, STATED SHE WILL BE HERE AROUND 5PM
--- NOTE | 2022-04-13 16:15 | NUR ---
P.T. NOTES P.T. EVAL COMPLETED; REFER TO EVAL FOR DETAILS.
--- NOTE | 2022-04-13 18:05 | NUR ---
AWAITING SLUBBER MACHINE OPERATOR FROM SISTER FOR DISCARGE. PT AWAKE IN BED. BREATHING SYMMETRICAL. PT VOIDED ON HER CHUCKS, CLEANED AND CHANGED PT. PT THEN C/O CHEST PAIN, PRN NITROGLYCERIN GIVEN.
--- NOTE | 2022-04-13 18:10 | NUR ---
PT VERBALIZED RELIEF FROM CHEST PAIN AND STATES SHE FEELS ALOT BETTER
--- NOTE | 2022-04-13 18:59 | NUR ---
CALLED SISTER TO FOLLOW UP REGARDING PRACTICE MANAGERS TIME, SISTER DIDN'T ANSWER AND ALSO UNABLE TO LEAVE VOICE MESSAGE
--- NOTE | 2022-04-13 19:15 | NUR ---
ENDORSED PT TO BILINGUAL TEACHER NURSE FOR CONTINUITY OF CARE. ALSO ENDORSED TRIED CALLING SISTER EARLIER BUT DIDN'T ANSWER AND UNABLE TO LEAVE VM
--- NOTE | 2022-04-13 19:27 | NUR ---
RECEIVED REPORT FROM AM SHIFT NURSE FOR CONTINUITY OF CARE. PT AWAKE, ALERT AND ORIENTED,RESTING ON BED. BREATHING EQUAL AND UNLABORED, ON ROOM AIR. NO DISTRESS NOTED. IV RFA G24, SL.PT FOR DISCHARGE, AWAITING SISTER. WILL FOLLOW UP. ALL PRECAUTIONS IN PLACE. CALL LIGHT WITHIN REACH. WILL CONTINUE TO MONITOR.
--- NOTE | 2022-04-13 19:30 | NUR ---
CALLED SISTER FOR TIME OF PT'S WAITER/WAITRESS FIRST CLASS. VOICEMAIL FULL.NO RESPONSE. WILL CALL GAIN.
--- NOTE | 2022-04-13 20:00 | NUR ---
CALLED SISTER FOR TIME OF PT'S MACHINIST/MACHINE BUILDER. NO RESPONSE. WILL CALL AGAIN.
--- NOTE | 2022-04-13 21:00 | NUR ---
SCHEDULED MEDICATIONS GIVEN. NO ACUTE DRUG REACTION NOTED.PT TOLERATED WELL. WILL CONTINUE TO MONITOR.
--- NOTE | 2022-04-13 21:55 | NUR ---
TRANSPORTED PT TO LOBBY VIA WHEELCHAIR ACCOMPANIED BY SISTER. PT STABLE. NO COMPLAINS SOB OR CHEST PAIN. REPORTS FEELING FINE AND READY TO GO HOME.
== END 2022-04-13 22:00 | disposition home or self-care (01) | DRG 280 ==
LOC: MED 16:54 → MTU 19:58
PROVIDERS: ADMIT Family Medicine; ATTEND Family Medicine
PROC: 30233N1 Transfusion of Nonautologous Red Blood Cells into Peripheral Vein, Percutaneous Approach (ICD-10-PCS; principal; 2022-04-10)
DX: I21.4 Non-ST elevation (NSTEMI) myocardial infarction (principal); E43 Unspecified severe protein-calorie malnutrition; I25.10 Atherosclerotic heart disease of native coronary artery without angina pectoris; I25.5 Ischemic cardiomyopathy; D50.9 Iron deficiency anemia, unspecified; I36.1 Nonrheumatic tricuspid (valve) insufficiency; I34.0 Nonrheumatic mitral (valve) insufficiency; Z20.822 Contact with and (suspected) exposure to COVID-19; E83.51 Hypocalcemia; E87.6 Hypokalemia; I11.0 Hypertensive heart disease with heart failure; I50.9 Heart failure, unspecified; Z68.26 Body mass index [BMI] 26.0-26.9, adult; K31.819 Angiodysplasia of stomach and duodenum without bleeding
CPT/HCPCS: 36415; 36430; 71045; 80048; 80053; 80305; 81003; 82150; 82607; 82728; 82746; 83036; 83540; 83690; 83735; 83880; 84100; 84436; 84439; 84443; 84479; 84484; 85018; 85025; 85045; 85610; 85730; 86886; 86900; 86901; 86920; 87081; 87086; 93005; 97112; 97530; 99285; J1650; J2001; J2405; J3480; J7030; P9016; Q0092